=== PATIENT | female | born 1955 | race Hispanic/Latino ===

== ENCOUNTER → 2025-08-04 | Day surgery (SDC) | payer MEDICARE, OTHER ==
[2025-07-28 14:01] LABS: BASOPHILS % 0.6 % (0.0-1.0); EOSINOPHILS % 3.3 % (0.0-6.0); LYMPHOCYTES % 43.1 % (18.0-39.1); MONOCYTES % 5.8 % (4.4-11.3); NEUTROPHILS % 47.0 % (38.7-80.0); RED CELL DISTRIBUTION WIDTH 11.7 % (11.7-14.4)
[2025-07-28 14:57] LABS: EST GLOMERULAR FILTRATION RATE 90.0 ML/MIN (>=60)
[~2025-08-04] MED LIST: ACETAMINOPHEN 1000 MG/100 ML 0 ML IV ONE; ACETAMINOPHEN 1000 MG/100 ML 100 ML IV ONE; BUPIVACAINE 0.25% 30ML SDV ONE; BUPIVACAINE 0.25%/EPI 30ML SDV INJ ONE; BUPIVACAINE LIPOSOME/PF 266 MG/20 ML IJ ONE; CEFAZOLIN SODIUM 2 GM ONE; CRESTOR40 MG PO; DEXAMETHASONE SOD PHOS INJ 4 MG/ML SDV ONE; FENTANYL CITRATE/PF 100MCG/2 ML INJ ONE; GLYCOPYRROLATE INJ 0.2 MG/ML VIAL ONE; LACTATED RINGER'S 1,000 ML ONE; LIDOCAINE HCL 2% LOCAL INJ 5 ML SDV VIAL INJ ONE; LOSARTAN POTASS25 MG PO; METOCLOPRAMIDE HCL 10 MG/2ML VIAL ONE; METOPROLOL SUCC25 MG PO; MIDAZOLAM HCL 2 MG/2 ML VIAL ONE; MOUNJARO15 MG/0.5 SC; ONDANSETRON HCL INJ 2MG/ML 2ML 2 MG/ML VIAL ONE; PANTOPRAZOLE SO40 MG PO; PROGES PO; PROPOFOL IV EMULSION 10 MG/ML 20 ML VIAL ONE; ROCURONIUM BROMIDE 1 ML IV ONE; SUCCINYLCHOLINE CHLORIDE 20 MG/ML 10ML VIAL ONE; SUGAMMADEX SODIUM 200 MG/2 ML VIAL IV ONE; TESTOSTERONE PO
[2025-08-04 14:46] VITALS: TEMP 97
[2025-08-04] MEDS: METOCLOPRAMIDE HCL 10 MG/2ML VIAL ONE (15:30)
[2025-08-04] MEDS: ONDANSETRON HCL INJ 2MG/ML 2ML 2 MG/ML VIAL ONE (15:30)
[2025-08-04 16:05] VITALS: BP 116/70; PULSE 70; RESP 16; O2SAT 98
== END | disposition home or self-care (01) ==
LOC: OR 08:33
PROVIDERS: ATTEND Orthopaedic Surgery Sports Medicine
DX: M75.122 Complete rotator cuff tear or rupture of left shoulder, not specified as traumatic (principal); M75.42 Impingement syndrome of left shoulder; M75.22 Bicipital tendinitis, left shoulder; S43.432A Superior glenoid labrum lesion of left shoulder, initial encounter; S46.112A Strain of muscle, fascia and tendon of long head of biceps, left arm, initial encounter; M17.11 Unilateral primary osteoarthritis, right knee; M25.462 Effusion, left knee; M06.9 Rheumatoid arthritis, unspecified; E11.9 Type 2 diabetes mellitus without complications; I10 Essential (primary) hypertension; E78.5 Hyperlipidemia, unspecified; K44.9 Diaphragmatic hernia without obstruction or gangrene; K21.9 Gastro-esophageal reflux disease without esophagitis; W19.XXXA Unspecified fall, initial encounter; Y93.B9 Activity, other involving muscle strengthening exercises; Y99.8 Other external cause status; Z88.6 Allergy status to analgesic agent; Z88.8 Allergy status to other drugs, medicaments and biological substances; Z01.810 Encounter for preprocedural cardiovascular examination; Z01.812 Encounter for preprocedural laboratory examination; Z01.818 Encounter for other preprocedural examination; Z79.85 Long-term (current) use of injectable non-insulin antidiabetic drugs; Z79.899 Other long term (current) drug therapy
CPT/HCPCS: 23430; 29826; 29827; 36415 ×2; 71046; 80048; 82948; 85025; 93005; C1713 ×4; C1889; J0131; J0330; J0666; J1100; J2003; J2250; J2405; J2704 ×2; J2765 ×2; J3010; J3590; J7121